=== PATIENT | male | born 1970 | race African-American/Black ===

== ENCOUNTER 2016-07-29 23:59 | Emergency (ER) | payer MEDICARE ==
--- NOTE | ~2016-07-29 | EKG ---
PATIENT: MANISHA GANNON UNIT #: [id number] Ventricular Rate: 95 BPM Atrial Rate: 95 BPM P-R Interval: 142 ms QRS Duration: 86 ms Q-T Interval: 444 ms QTC Calculation(Bezet): 557 ms P [place]: 49 degrees Calculated R [place]: -31 degrees Calculated T [place]: 82 degrees Diagnosis Line: Normal sinus rhythm Diagnosis Line: Biatrial enlargement Diagnosis Line: Left axis deviation Diagnosis Line: Prolonged QT Diagnosis Line: Abnormal ECG Diagnosis Line: When compared with ECG of 19-DEC-2015 06:07, Diagnosis Line: Premature ventricular complexes are no longer Diagnosis Line: Present Diagnosis Line: T wave inversion no longer evident in Inferior Diagnosis Line: leads Diagnosis Line: T wave inversion less evident in Anterolateral Diagnosis Line: leads Diagnosis Line: QT has lengthened Diagnosis Line: Confirmed by SANDRA GUNN MD ([id number]) on Diagnosis Line: 07/30/2016 11:17:16 PM INTERPRETING MD: NASH
--- NOTE | ~2016-07-29 | CR72 ---
[facility] A Service of [facility] & [facility] RADIOLOGY TEXT RESULTS PATIENT: MANISHA GANNON LOCATION: [facility] : 70 UNIT #: [id number] AGE: [address]: Efe Hernandez MD SEX: M ORDER DR: [id number] [facility] [address] [place], [place] [address] [id number] E MR#: [id number] Acc #: [id number] NAME: MANISHA GANNON. : 1970 SEX: M STUDY DATE/TIME: 07/30/2016 0:14 UNIT: [facility] ROOM: STUDY DESCRIPTION: CR Chest Single View Portable Attending Physician: Efe Hernandez M.D. Ordering Physician: Ed Doctor [id number] [facility] Primary Care Physician: Primary Care Physician No MEDICAL IMAGING REPORT This report is preliminary unless electronic signature is present EXAM AP portable chest 07/30/2016 HISTORY 46-year-old male in the ED complaining of new onset chest pain tonight. TECHNIQUE AP portable chest x-ray. FINDINGS No active disease in the chest. Mild cardiomegaly. Pulmonary vascularity is normal. The lungs appear clear. No visible pulmonary infiltrate or pleural effusion. No change since 12/18/2015. IMPRESSION No active disease. No change since 12/18/2015. Dictated by... Brice Nation M.D. THIS IS AN ELECTRONICALLY VERIFIED REPORT Brice Nation M.D. at 08/04/2016 9:15 AM ADONISW/latanya TD: 07/30/2016 01:34 JOB #: [id number] MEDICAL IMAGING REPORT Page 1 of 1 COPY
[~2016-07-29 23:59] MED LIST: ACETAMINOPHEN325 MG PO; AMOXICILLIN875 MG; ANEXSIA 5/325 M1 TA1 PO; ASPIRIN81 MG PO; AUGMENTIN875 MG PO; BUMEX2 MG PO; CARVEDILOL25 MG PO; COREG PO; COUMADIN10 MG PO; COUMADIN5 MG PO; DOXYCYCLINE HY100 M3 PO; ENOXAPARIN150 MG/1 M SQ; FUROSEMIDE40 MG PO; HYDRALAZINE HC100 MG PO; HYDRALAZINE HCL25 MG PO; INSULIN SY; K-DUR20 ME1 PO; LASIX20 MG PO; LEVEMIR100 UNITS/ SUBQ; LISINOPRIL20 MG PO; LOVENOX100 MG/ML INJ; NORVASC10 MG PO; NOVOLIN R100 UNITS/ SUBQ; NOVOLOG100 U/M1 SUBQ; NOVOLOG100 U/M2 SUBQ; OMNICEF300 M1 PO; OXYCODON-ACETA1 EAC1 PO; POTASSIUM CHLO10 ME1 PO; PRINIVIL40 MG PO; SIMVASTATIN40 MG PO; SUPRAX400 MG PO; [UNRECOGNIZED DRUG - OTHER]
[2016-07-30 00:31] LABS: BASOPHIL# 0.1 X10e3 (0-0.3); BASOPHIL% 1.1 % (0-2.5); EOSINOPHIL# 0.1 X10e3 (0-0.7); EOSINOPHIL% 2.3 % (0.0-7.0); HEMATOCRIT 45.6 % (38.0-50.0); HEMOGLOBIN 14.5 gm/dL (13.0-16.0); LYMPHOCYTE# 1.9 X10e3 (1.0-3.5); LYMPHOCYTE% 29.1 % (17.0-45.0); MEAN CELL VOLUME 82.2 FL (83-96); MEAN CORPUSCULAR HEMOGLOBIN 26.2 PG (28-34); MEAN CORPUSCULAR HGB CONC 31.9 g/dL (30-36); MEAN PLATELET VOLUME 8.7 FL (6.5-11.5); MONOCYTE# 0.4 X10e3 (0-1.0); MONOCYTE% 5.5 % (3.0-12.0); PLATELET COUNT 195 X10e3 (140-420); RED BLOOD COUNT 5.55 X10e (3.90-5.60); RED CELL DISTRIBUTION WIDTH 15.3 % (11.0-15.5); WHITE BLOOD COUNT 6.4 X10e3 (4.0-10.5)
[2016-07-30 00:57] LABS: ALBUMIN SERUM 3.7 g/dL (3.5-5.0); ALKALINE PHOSPHATASE 69 U/L (32-92); ALT (SGPT) 9 U/L (10-40); AST (SGOT) 14 U/L (10-42); BILIRUBIN,TOTAL 0.8 mg/dL (0.2-2.0); BLOOD UREA NITROGEN 23 mg/dL (9-23); BUN/CREATININE RATIO 16.42; CALCIUM SERUM 9.3 mg/dL (8.4-10.2); CARBON DIOXIDE 26 mmol/L (22-31); CHLORIDE 98 mmol/L (100-111); CREATININE SERUM 1.4 mg/dL (0.6-1.4); GLOM FILT RATE Estimated 69.4 mL/min (>60); GLUCOSE FASTING 424 mg/dL (70-110); POTASSIUM 3.4 mmol/L (3.5-5.1); PROTEIN TOTAL SERUM 7.4 g/dL (6.0-8.3); SODIUM 133 mmol/L (135-145)
[2016-07-30 01:05] LABS: BILIRUBIN, DIRECT <0.1 mg/dL (0.0-0.2); BILIRUBIN,INDIRECT 0.7 mg/dL (0.0-0.9)
[2016-07-30 01:18] LABS: DIFF IND NO
[2016-07-30 01:32] LABS: POC - CKMB 4.4 ng/mL (0.0-7.9); POC - TROPONIN <0.05 ng/mL (<=0.05)
[2016-07-30 02:00] LABS: POC - CKMB 4.2 ng/mL (0.0-7.9); POC - TROPONIN <0.05 ng/mL (<=0.05)
== END 2016-07-30 03:25 | disposition home or self-care (01) ==
LOC: CED 23:59
PROVIDERS: Emergency Medicine
DX: I25.110 Atherosclerotic heart disease of native coronary artery with unstable angina pectoris (principal); I11.0 Hypertensive heart disease with heart failure; I50.9 Heart failure, unspecified; E11.9 Type 2 diabetes mellitus without complications; Z86.73 Personal history of transient ischemic attack (TIA), and cerebral infarction without residual deficits
CPT/HCPCS: 71010; 80048; 80076; 82553; 82947; 84484; 85025; 93005; 96374; 96375; 99284